=== PATIENT | female | born 1990 | race Caucasian/White ===

== ENCOUNTER 2016-10-01 10:16 | Day surgery (SDC) | payer OTHER ==
[~2016-10-01] VITALS: Ht 174 cm; Wt 135.6 kg
[~2016-10-01 10:16] MED LIST: ADVAIR 100/501 DISK IH; CYANOCOBALAM1000 MCG PO; IRON325 MG PO; MULTIVITAMIN1 EAC2 PO; PHENTERMINE HCL15 MG PO; PROAIR HFA8.5 GM IH; SINGULAIR10 MG PO; VENOFER100 MG/51 IV
[2016-10-01 10:43] VITALS: BP 127/71
[2016-10-01] MEDS ORDERED: NORCO 7.5/321 TABLET PO (13:32)
[2016-10-01] MEDS ORDERED: MOTRIN800 MG PO (13:32)
[2016-10-01 14:35] VITALS: BP 134/60
[2016-10-01 15:22] VITALS: BP 131/74
== END 2016-10-01 15:26 | disposition home or self-care (01) ==
LOC: SDC 10:16
DX: N93.8 Other specified abnormal uterine and vaginal bleeding (principal); D64.9 Anemia, unspecified; N84.0 Polyp of corpus uteri; Z30.430 Encounter for insertion of intrauterine contraceptive device; J45.909 Unspecified asthma, uncomplicated; E66.01 Morbid (severe) obesity due to excess calories; Z68.41 Body mass index [BMI] 40.0-44.9, adult; Z79.51 Long term (current) use of inhaled steroids
CPT/HCPCS: 88305; J0131; J0330; J0690; J1100; J1885; J2250; J2405; J2765; J3010; J7050